=== PATIENT | female | born 1980 | race Caucasian/White ===

== ENCOUNTER 2016-08-12 20:56 | Emergency (ER) | payer MEDICAID ==
[2016-08-12] MEDS ORDERED: KETOROLAC 60 MG/2 ML VIAL IVP STA (22:12)
[2016-08-12] MEDS ORDERED: PROMETHAZINE INJ 25 MG in SODIUM CHLORIDE 0.9% 50 ML IV STA (22:12)
[2016-08-12] MEDS ORDERED: SODIUM CHLORIDE 0.9% 1,000 ML IV STA (22:12)
[2016-08-12] MEDS ORDERED: PROMETHAZINE 25 MG/1 ML VIAL ONE (22:53)
[2016-08-12] MEDS ORDERED: KETOROLAC 30 MG/ML VIAL ONE (22:53)
[2016-08-13] MEDS ORDERED: HYDROmorphone 1 MG/ML SYRINGE IVP STA (00:08)
[2016-08-13] MEDS ORDERED: HYDROmorphone 1 MG/ML SYRINGE ONE (00:15)
== END 2016-08-13 01:27 | disposition home or self-care (01) ==
DX: G43.909 Migraine, unspecified, not intractable, without status migrainosus (principal); J45.909 Unspecified asthma, uncomplicated; M79.7 Fibromyalgia
CPT/HCPCS: 36415; 80048; 85025; 96365; 96375; 99283; 99284; J1170

== ENCOUNTER 2016-10-08 11:31 | Emergency (ER) | payer MEDICAID ==
[2016-10-08] MEDS ORDERED: KETOROLAC 60 MG/2 ML VIAL IM STA (12:20)
[2016-10-08] MEDS ORDERED: PROMETHAZINE 25 MG/1 ML VIAL IM STA ×2 (12:20→13:07)
[2016-10-08] MEDS ORDERED: PROMETHAZINE 25 MG/1 ML VIAL ONE ×2 (12:27→13:17)
[2016-10-08] MEDS ORDERED: KETOROLAC 60 MG/2 ML VIAL ONE (12:27)
[2016-10-08] MEDS ORDERED: HYDROmorphone 1 MG/ML SYRINGE IM STA (13:07)
[2016-10-08] MEDS ORDERED: HYDROmorphone 1 MG/ML SYRINGE ONE (13:17)
== END 2016-10-08 14:39 | disposition home or self-care (01) ==
DX: G43.909 Migraine, unspecified, not intractable, without status migrainosus (principal); J45.909 Unspecified asthma, uncomplicated; M79.7 Fibromyalgia
CPT/HCPCS: 96372; 99283; 99284; J1170

== ENCOUNTER 2017-01-06 11:08 | Emergency (ER) | payer MEDICAID ==
[2017-01-06] MEDS ORDERED: KETOROLAC 60 MG/2 ML VIAL IVP STA (14:15)
[2017-01-06] MEDS ORDERED: SODIUM CHLORIDE 0.9% 1,000 ML IV ONE (14:15)
[2017-01-06] MEDS ORDERED: PROMETHAZINE INJ 25 MG in SODIUM CHLORIDE 0.9% 50 ML IV STA ×2 (14:16→16:08)
[2017-01-06] MEDS ORDERED: MAGNESIUM SULFATE 2 GRAM 50 ML IV ONE ×2 (14:16→15:03)
[2017-01-06] MEDS ORDERED: DEXAMETHASONE 10 MG/ML VIAL IVP STA (14:16)
[2017-01-06] MEDS ORDERED: SUMAtriptan 6 MG/0.5 ML VIAL SUBQ STA ×2 (14:16→16:08)
--- NOTE | 2017-01-06 14:18 | ED Physician Documentation ---
History of Present Illness - Stated complaint Stated Complaint: MIGRAINE - Chief complaint Chief Complaint: General - History obtained from History obtained from: Patient, Family - History of Present Illness Timing: Other (36-year-old woman with frequent migraines had a gradual onset headache a few days ago that has not responded to her usual home treatments including Relpax. She is vomiting, photophobic and phonophobic.) Review of Systems Constitutional: denies: Fever, Chills Musculoskeletal: denies: Neck pain, Back pain Neurologic: denies: Generalized weakness, Focal weakness PD PAST MEDICAL HISTORY - Past Medical History Cardiovascular: None Respiratory: Asthma Neuro: Headache/migraine, Seizure disorder Endocrine/Autoimmune: Other GI: Other [employer]: None : None HEENT: None Psych: Depression, Anxiety, Panic attacks, Post traumatic stress disorder Musculoskeletal: Fibromyalgia Derm: None - Past Surgical History Past Surgical History: Yes General: Cholecystectomy - Present Medications Home Medications: Ambulatory Orders Medication Instructions Recorded Confirmed Escitalopram Oxalate [Lexapro] 20 mg PO DAILY 07/03/14 01/06/17 Prazosin [Minipress] 1 mg PO DAILY 07/03/14 01/06/17 Verapamil [Calan] 80 mg PO DAILY 07/03/14 01/06/17 Promethazine [Phenergan] 25 mg PO Q6H PRN #12 tablet 04/08/16 01/06/17 Eletriptan HBr [Relpax] 40 mg PO DAILY PRN 08/12/16 01/06/17 - Allergies Allergies/Adverse Reactions: Allergies Allergy/AdvReac Type Severity Reaction Status Date / Time asenapine maleate * Allergy Anaphylaxis Verified 01/06/17 11:27 [From Saphris] calcium carbonate [From DHEA] Allergy Hives Verified 01/06/17 11:27 calcium phosphate,dibasic * Allergy Hives Verified 01/06/17 11:27 [From DHEA] doxepin Allergy Headache Verified 01/06/17 11:27 haloperidol [From Haldol] Allergy Anxiety Verified 01/06/17 11:27 haloperidol lactate * Allergy Anxiety Verified 01/06/17 11:27 [From Haldol] prasterone (DHEA) [From DHEA] Allergy Hives Verified 01/06/17 11:27 prochlorperazine edisylate * Allergy Anxiety Verified 01/06/17 11:27 [From Compazine] prochlorperazine maleate * Allergy Anxiety Verified 01/06/17 11:27 [From Compazine] zolmitriptan [From Zomig] Allergy Anaphylaxis Verified 01/06/17 11:27 benztropine mesylate * AdvReac Itching Verified 01/06/17 11:27 [From Cogentin] ibuprofen AdvReac Unknown Verified 01/06/17 11:27 metoclopramide HCl * AdvReac Anxiety Verified 01/06/17 11:27 [From Reglan] ondansetron HCl * AdvReac Headache Verified 01/06/17 11:27 [From Zofran (as hydrochloride)] - Social History Does the pt smoke?: No Smoking Status: Never smoker Does the pt drink ETOH?: No Does the pt have substance abuse?: No - Immunizations Immunizations are current?: Yes - POLST Patient has POLST: No PD ED PE NORMAL - Vitals Vital signs reviewed: Yes - General General: Alert and oriented X 3, Other (In pain, head in a pillow) - Neck Neck: Supple, no meningeal sign, No bony TTP - Neuro Neuro: Alert and oriented X 3, Normal speech - Psych Psych: Normal mood, Normal affect Results - Vitals Vitals: Vital Signs - 24 hr 01/06/17 01/06/17 01/06/17 11:23 13:20 15:49 Temperature 36.3 C L Heart Rate 74 88 71 Respiratory 20 20 14 Rate Blood Pressure 126/83 H 137/87 H 114/72 O2 Saturation 100 100 Oxygen O2 Source Room air PD MEDICAL DECISION MAKING - ED course ED course: The headache is gradual in onset and similar to prior headaches. As such I doubt subarachnoid hemorrhage. There are no infectious symptoms such as fever or stiff neck to make me suspect meningitis. No carbon monoxide exposure by history. In the past we have been treating her with narcotics, I discussed with her our ongoing policy not to give narcotics for headache syndromes. She was treated with IV fluids, Phenergan, Toradol, subcutaneous Imitrex, magnesium, and IV dexamethasone. She had modest relief with this and the Imitrex was repeated and given a second dose of Phenergan, she was asking for narcotics and I discussed with her again the policy for this. Her multiple drug allergies to make treatment of her Migraines difficult. Departure - Departure Disposition: 01 Home, Self Care Clinical Impression: Migraine Condition: Good Record reviewed to determine appropriate education?: Yes Instructions: ED Headache Migraine Comments: As discussed, it is the policy of this emergency department not to give narcotics such as Dilaudid or morphine for migraine headaches. Follow-up with your headache specialist.
[2017-01-06] MEDS ORDERED: DEXAMETHASONE 10 MG/ML VIAL ONE (15:02)
[2017-01-06] MEDS ORDERED: SUMAtriptan 6 MG/0.5 ML VIAL SUBQ ONE ×2 (15:02→16:39)
[2017-01-06] MEDS ORDERED: KETOROLAC 30 MG/ML VIAL ONE (15:02)
[2017-01-06] MEDS ORDERED: PROMETHAZINE 25 MG/1 ML VIAL ONE ×2 (15:03→16:39)
[2017-01-06] MEDS ORDERED: SODIUM CHLORIDE FLUSH 0.9% 10 ML SYRINGE IVP ONE (16:39)
[2017-01-06 18:15] VITALS: BP 126/78
== END 2017-01-06 18:17 | disposition home or self-care (01) ==
LOC: ED 11:08
DX: G43.909 Migraine, unspecified, not intractable, without status migrainosus (principal); M79.7 Fibromyalgia
CPT/HCPCS: 96365; 96366; 96372; 96375; 99283; 99284; J7040